=== PATIENT | male | born 1980 | race Caucasian/White ===

== ENCOUNTER 2022-06-23 09:30 | Emergency (ER) | payer MEDICAID, OTHER ==
[~2022-06-23] VITALS: Ht 182.9 cm; Wt 65.0 kg
[2022-06-23] MEDS ORDERED: LIDOCAINE 1% HCL (LOCAL ANESTH.) INJ 20ML MDV IJ ONE (10:00)
[2022-06-23 10:09] VITALS: BP 137/98
[2022-06-23] MEDS ORDERED: CEPH-510 PO (10:32)
[2022-06-23] MEDS ORDERED: NAPR500T31 PO (10:32)
== END 2022-06-23 10:39 | disposition home or self-care (01) ==
LOC: ER 09:30 → EDUNIT# 09:30 → EDBD 09:30 → ER 10:39
DX: S01.81XA Laceration without foreign body of other part of head, initial encounter (principal); S81.811A Laceration without foreign body, right lower leg, initial encounter; F17.210 Nicotine dependence, cigarettes, uncomplicated; W26.8XXA Contact with other sharp object(s), not elsewhere classified, initial encounter; Y93.89 Activity, other specified; Y92.89 Other specified places as the place of occurrence of the external cause; Y99.8 Other external cause status
CPT/HCPCS: 12002; 12015; 99283; J2001

== ENCOUNTER 2022-07-20 13:56 | Inpatient (IN) | payer MEDICAID ==
[~2022-07-20] VITALS: Ht 180.3 cm; Wt 79.8 kg
[~2022-07-20 13:56] MED LIST: CEPH-510 PO; NAPR500T31 PO
[2022-07-20] MEDS ORDERED: CLINDAMYCIN 600MG IV 50 ML IV ONE (14:30)
[2022-07-20] MEDS ORDERED: SODIUM CHLORIDE 0.9% 1,000 ML IV ONE ×2 (14:30)
[2022-07-20] MEDS ORDERED: cefTRIAXone 1GM/50ML D5W 50 ML IV ONE (14:30)
[2022-07-20 14:42] LABS: Basophils # (auto) 0.1 10 ^3/uL (0-0.2); Eosinophils # (auto) 0.2 10 ^3/uL (0-0.8); Eosinophils % (auto) 1.6 % (0.0-7.0); Hematocrit 37.8 % (41.0-53.0); Hemoglobin 12.4 g/dL (13.5-17.5); Lymphocytes # (auto) 2.8 10 ^3/uL (0.4-5.4); Mean Corpuscular Hemoglobin 27.8 pg (28.0-32.0); Mean Corpuscular Hgb Conc. 32.7 g/dL (32.0-36.0); Monocytes # (auto) 1.3 10 ^3/uL (0-1.3); Monocytes % (auto) 10.5 % (0.0-12.0); Neutrophils # (auto) 8.2 10 ^3/uL (1.6-8.6); Neutrophils % (auto) 64.9 % (37.0-80.0); Nucleated Red Blood Cells % 0.1 %; Red Blood Cells 4.44 10^6/uL (4.5-5.90); Red Cell Distribution Width 13.3 % (11.8-14.3); White Blood Cell 12.6 10^3/uL (4.4-10.8)
[2022-07-20 14:58] LABS: Albumin 2.7 g/dL (3.4-5.0); BUN/Creatinine Ratio 11.2; Calcium 8.8 mg/dL (8.5-10.1); Potassium 3.5 mmol/L (3.5-5.1)
[2022-07-20 15:00] LABS: INR 0.93 (0.9-1.15); Partial Thromboplastin Time 27.1 sec (24.6-33.4)
[2022-07-20 15:02] LABS: Bilirubin, Total 0.2 mg/dL (0.2-1.0); Total Protein 6.2 g/dL (6.4-8.2)
[2022-07-20] MEDS ORDERED: KETOROLAC TROMETH 30 MG/ML 1ML VIAL IV ONE (16:00)
[2022-07-20] MEDS: SODIUM CHLORIDE 0.9% 1,000 ML IV SCH (16:14)
[2022-07-20 16:34] LABS: Urine Bacteria NONE SEEN /hpf (None Seen); Urine Blood Negative /uL (Negative); Urine Specific Gravity 1.003 (1.001-1.035); Urine WBC <1 /hpf (0 - 3)
[2022-07-20] MEDS: KETOROLAC TROMETH 30 MG/ML 1ML VIAL IV PRN (20:14)
[2022-07-20] MEDS: CLINDAMYCIN 600MG IV 50 ML IV SCH (21:52)
[2022-07-20] MEDS: ASCORBIC ACID 500 MG TAB PO SCH (21:53)
[2022-07-20 21:58] VITALS: BP 131/71
[2022-07-20 22:00] VITALS: BP 131/71
[2022-07-21 05:00] VITALS: BP 111/58
[2022-07-21] MEDS: CLINDAMYCIN 600MG IV 50 ML IV SCH ×3 (05:27→21:22)
[2022-07-21] MEDS: SODIUM CHLORIDE 0.9% 1,000 ML IV SCH ×2 (05:30→20:53)
[2022-07-21 06:17] LABS: Basophils # (auto) 0.1 10 ^3/uL (0-0.2); Basophils % (auto) 0.7 % (0.0-2.0); Eosinophils # (auto) 0.3 10 ^3/uL (0-0.8); Eosinophils % (auto) 2.2 % (0.0-7.0); Hematocrit 38.6 % (41.0-53.0); Hemoglobin 12.7 g/dL (13.5-17.5); Lymphocytes % (auto) 14.4 % (10.0-50.0); Mean Corpuscular Hgb Conc. 32.8 g/dL (32.0-36.0); Mean Corpuscular Volume 85.3 fL (80.0-100.0); Monocytes % (auto) 6.7 % (0.0-12.0); Neutrophils # (auto) 10.7 10 ^3/uL (1.6-8.6); Nucleated Red Blood Cells % 0.1 %; Red Blood Cells 4.53 10^6/uL (4.5-5.90); Red Cell Distribution Width 13.2 % (11.8-14.3); White Blood Cell 14.2 10^3/uL (4.4-10.8)
[2022-07-21 06:34] LABS: Albumin 2.6 g/dL (3.4-5.0); BUN/Creatinine Ratio 13.3; Calcium 8.6 mg/dL (8.5-10.1); Potassium 4.6 mmol/L (3.5-5.1)
[2022-07-21 06:38] LABS: Bilirubin, Total 0.3 mg/dL (0.2-1.0); Total Protein 6.3 g/dL (6.4-8.2)
[2022-07-21 09:00] VITALS: BP 112/68
[2022-07-21] MEDS ORDERED: cefTRIAXone 1GM/50ML D5W 50 ML IV SCH (09:00)
[2022-07-21] MEDS: ASCORBIC ACID 500 MG TAB PO SCH ×2 (09:41→21:22)
[2022-07-21] MEDS: ZINC SULFATE 220mg CAP or TAB PO SCH (09:41)
[2022-07-21] MEDS: ENOXAPARIN SOD 40 MG/0.4 ML SYRINGE SC SCH (09:41)
[2022-07-21] MEDS: MULTIPLE VITAMIN TAB PO SCH (09:41)
[2022-07-21 13:00] VITALS: BP 107/59
[2022-07-21 22:00] VITALS: BP 112/67
[2022-07-21] MEDS ORDERED: VANCOMYCIN PER PHARMACY 0 MG IV SCH (22:30)
[2022-07-21] MEDS ORDERED: VANCOMYCIN 1GM/250ML 250 ML IV ONE (23:00)
[2022-07-22 05:00] VITALS: BP 118/79
[2022-07-22 09:00] VITALS: BP 112/63
[2022-07-22] MEDS: ENOXAPARIN SOD 40 MG/0.4 ML SYRINGE SC SCH ×2 (10:00→10:43)
[2022-07-22] MEDS: SODIUM CHLORIDE 0.9% 1,000 ML IV SCH (10:39)
[2022-07-22] MEDS: ZINC SULFATE 220mg CAP or TAB PO SCH (10:43)
[2022-07-22] MEDS: ASCORBIC ACID 500 MG TAB PO SCH ×2 (10:43→21:42)
[2022-07-22] MEDS: MULTIPLE VITAMIN TAB PO SCH (10:43)
[2022-07-22] MEDS: VANCOMYCIN 1GM/250ML 250 ML IV SCH ×2 (11:55→20:11)
[2022-07-22 13:00] VITALS: BP 107/55
[2022-07-22 16:36] VITALS: BP 96/54
[2022-07-22] MEDS: KETOROLAC TROMETH 30 MG/ML 1ML VIAL IV PRN (21:11)
[2022-07-22 22:00] VITALS: BP 120/72
[2022-07-23] MEDS: SODIUM CHLORIDE 0.9% 1,000 ML IV SCH ×2 (00:42→15:00)
[2022-07-23 03:13] LABS: Albumin 2.3 g/dL (3.4-5.0); BUN/Creatinine Ratio 12.6; Calcium 8.6 mg/dL (8.5-10.1); Phosphorus 4.2 mg/dL (2.5-4.90); Potassium 4.1 mmol/L (3.5-5.1)
[2022-07-23] MEDS: VANCOMYCIN 1GM/250ML 250 ML IV SCH ×3 (04:17→20:02)
[2022-07-23 05:00] VITALS: BP 112/78
[2022-07-23 09:00] VITALS: BP 136/74
[2022-07-23] MEDS: ENOXAPARIN SOD 40 MG/0.4 ML SYRINGE SC SCH ×2 (10:00→11:07)
[2022-07-23] MEDS: ASCORBIC ACID 500 MG TAB PO SCH ×2 (11:07→22:19)
[2022-07-23] MEDS: ZINC SULFATE 220mg CAP or TAB PO SCH (11:07)
[2022-07-23] MEDS: MULTIPLE VITAMIN TAB PO SCH (11:07)
[2022-07-23 13:00] VITALS: BP 117/69
[2022-07-23] MEDS: ACETAMINOPHEN 325 MG TAB PO PRN (13:59)
[2022-07-23 16:51] VITALS: BP 115/63
[2022-07-23] MEDS: KETOROLAC TROMETH 30 MG/ML 1ML VIAL IV PRN ×2 (18:21→18:54)
[2022-07-23 23:00] VITALS: BP 127/77
[2022-07-24] MEDS: VANCOMYCIN 1GM/250ML 250 ML IV SCH ×3 (04:42→21:49)
[2022-07-24] MEDS: SODIUM CHLORIDE 0.9% 1,000 ML IV SCH ×2 (05:18→20:15)
[2022-07-24 05:45] VITALS: BP 119/63
[2022-07-24 09:00] VITALS: BP 117/73
[2022-07-24] MEDS: MULTIPLE VITAMIN TAB PO SCH (09:17)
[2022-07-24] MEDS: ENOXAPARIN SOD 40 MG/0.4 ML SYRINGE SC SCH (09:17)
[2022-07-24] MEDS: ZINC SULFATE 220mg CAP or TAB PO SCH (09:17)
[2022-07-24] MEDS: ASCORBIC ACID 500 MG TAB PO SCH ×2 (09:17→22:02)
[2022-07-24] MEDS: KETOROLAC TROMETH 30 MG/ML 1ML VIAL IV PRN ×2 (09:59→20:06)
[2022-07-24 13:00] VITALS: BP 110/60
[2022-07-24] MEDS ORDERED: PROPOFOL 10 MG/ML 20 ML IV ONE (14:26)
[2022-07-24] MEDS ORDERED: GLYCOPYRROLATE 0.2 MG/ML 1ML VIAL ONE (14:27)
[2022-07-24] MEDS ORDERED: DexAMETHasone SOD PHOS 10MG/1ML VIAL INJ ONE (14:27)
[2022-07-24] MEDS ORDERED: ONDANSETRON HCL 4 MG/2 ML VIAL ONE (14:27)
[2022-07-24] MEDS ORDERED: KETOROLAC TROMETH 30 MG/ML 1ML VIAL ONE (14:27)
[2022-07-24] MEDS ORDERED: KETAMINE 50mg/ML 10ml Vial (500mg/10ml) IV ONE (14:30)
[2022-07-24] MEDS ORDERED: BUPIVACAINE 0.25% INJ 50ML VIAL ONE (14:41)
[2022-07-24] MEDS ORDERED: LIDOCAINE 1%HCL (LOCAL ANESTH) 10 ML MDV ONE (14:41)
[2022-07-24 16:15] VITALS: BP 117/74
[2022-07-24 22:00] VITALS: BP 107/60
[2022-07-24] MEDS: DAKINS QUARTER STR 0.125% (NaHypochlorite) 473 ML TOPICAL SOL TOP SCH (22:35)
[2022-07-24] MEDS ORDERED: SULF400T11 PO (23:48)
[2022-07-24] MEDS ORDERED: BACDST PO (23:49)
[2022-07-24] MEDS ORDERED: AMOX-277 PO (23:51)
[2022-07-25] MEDS: ACETAMINOPHEN 325 MG TAB PO PRN (00:51)
[2022-07-25] MEDS: VANCOMYCIN 1GM/250ML 250 ML IV SCH ×2 (04:55→13:16)
[2022-07-25 05:00] VITALS: BP 107/62
[2022-07-25] MEDS: KETOROLAC TROMETH 30 MG/ML 1ML VIAL IV PRN ×2 (05:06→16:03)
[2022-07-25 08:00] VITALS: BP 104/59
[2022-07-25 09:00] VITALS: BP 104/59
[2022-07-25] MEDS: MULTIPLE VITAMIN TAB PO SCH (09:37)
[2022-07-25] MEDS: ENOXAPARIN SOD 40 MG/0.4 ML SYRINGE SC SCH (09:37)
[2022-07-25] MEDS: ZINC SULFATE 220mg CAP or TAB PO SCH (09:37)
[2022-07-25] MEDS: ASCORBIC ACID 500 MG TAB PO SCH (09:37)
[2022-07-25] MEDS: SODIUM CHLORIDE 0.9% 1,000 ML IV SCH (09:54)
[2022-07-25 13:00] VITALS: BP 109/56
[2022-07-25] MEDS: DAKINS QUARTER STR 0.125% (NaHypochlorite) 473 ML TOPICAL SOL TOP SCH (16:03)
[2022-07-25 16:11] VITALS: BP 109/56
[2022-07-25 17:00] VITALS: BP 114/55
== END 2022-07-25 17:52 | disposition home health service (06) | DRG 383 ==
LOC: ER 13:56 → OVERFLOW 15:31 → WEST WING 21:33
PROVIDERS: ADMIT Nurse Practitioner Family; ATTEND Internal Medicine
PROC: 0JBN0ZZ Excision of Right Lower Leg Subcutaneous Tissue and Fascia, Open Approach (ICD-10-PCS; principal; 2022-07-24 15:09)
DX: L03.115 Cellulitis of right lower limb (principal); E88.09 Other disorders of plasma-protein metabolism, not elsewhere classified; L97.919 Non-pressure chronic ulcer of unspecified part of right lower leg with unspecified severity; S81.811A Laceration without foreign body, right lower leg, initial encounter; D64.9 Anemia, unspecified; S01.81XA Laceration without foreign body of other part of head, initial encounter; B95.62 Methicillin resistant Staphylococcus aureus infection as the cause of diseases classified elsewhere; D72.829 Elevated white blood cell count, unspecified; F15.10 Other stimulant abuse, uncomplicated; J45.909 Unspecified asthma, uncomplicated; Z20.822 Contact with and (suspected) exposure to COVID-19; W18.39XA Other fall on same level, initial encounter; Y93.89 Activity, other specified; Y92.89 Other specified places as the place of occurrence of the external cause; Y99.8 Other external cause status; Z71.6 Tobacco abuse counseling
CPT/HCPCS: 36415; 71045; 73700; 80053; 80069; 80202; 81001; 82565; 85025; 85379; 85610; 85730; 87040; 87070; 87075; 87077; 87186; 87205; 87426; 96365; 96368; 96375; 96376; G0378; J0696; J1100; J1885; J2001; J2405; J2704; J3490

== ENCOUNTER 2022-09-07 19:20 | Inpatient (IN) | payer MEDICAID ==
[~2022-09-07] VITALS: Ht 180.3 cm; Wt 78.0 kg
[~2022-09-07 19:20] MED LIST changes: +AMOX-277 PO; +BACDST PO; -CEPH-510 PO; -NAPR500T31 PO
[2022-09-07] MEDS ORDERED: HYDROcodone-ACET 10/325MG TAB PO ONE (20:00)
[2022-09-07 20:35] LABS: Basophils # (auto) 0.1 10 ^3/uL (0-0.2); Basophils % (auto) 0.5 % (0.0-2.0); Eosinophils # (auto) 0.2 10 ^3/uL (0-0.8); Hematocrit 39.4 % (41.0-53.0); Hemoglobin 13.4 g/dL (13.5-17.5); Lymphocytes # (auto) 1.8 10 ^3/uL (0.4-5.4); Lymphocytes % (auto) 16.3 % (10.0-50.0); Mean Corpuscular Hgb Conc. 33.9 g/dL (32.0-36.0); Mean Corpuscular Volume 85.4 fL (80.0-100.0); Monocytes # (auto) 0.8 10 ^3/uL (0-1.3); Monocytes % (auto) 7.6 % (0.0-12.0); Neutrophils % (auto) 73.6 % (37.0-80.0); Nucleated Red Blood Cells % 0.2 %; Red Blood Cells 4.62 10^6/uL (4.5-5.90); White Blood Cell 10.9 10^3/uL (4.4-10.8)
[2022-09-07 20:54] LABS: Albumin 3.7 g/dL (3.4-5.0)
[2022-09-07 21:03] LABS: Bilirubin, Total 0.3 mg/dL (0.2-1.0); CRP High Sensitivity 4.05 mg/dL (< 0.3); Total Protein 7.3 g/dL (6.4-8.2)
[2022-09-08] MEDS ORDERED: VANCOMYCIN 1GM/250ML 250 ML IV SCH ×2 (00:50→01:50)
[2022-09-08] MEDS ORDERED: ACETAMINOPHEN 325 MG TAB PO PRN (01:45)
[2022-09-08] MEDS ORDERED: MORPHINE SULFATE INJ 2 MG/ml SYRG IV PRN ×2 (01:45)
[2022-09-08] MEDS ORDERED: VANCOMYCIN PER PHARMACY 0 MG IV SCH (01:45)
[2022-09-08] MEDS ORDERED: ONDANSETRON HCL 4 MG/2 ML VIAL IV PRN (01:45)
[2022-09-08] MEDS ORDERED: DOCUSATE SOD 100 MG CAP PO PRN (01:45)
[2022-09-08] MEDS ORDERED: NITROGLYCERIN 0.4 MG SL TAB SL PRN (01:45)
[2022-09-08] MEDS: SODIUM CHLOR 0.9% PF (SALINE LOCK) 10ML VIAL/SYR IV SCH ×3 (07:17→23:10)
[2022-09-08] MEDS: HYDROcodone-ACET 5/325MG TAB PO PRN (08:49)
[2022-09-08] MEDS: ZINC SULFATE 220mg CAP or TAB PO SCH (10:18)
[2022-09-08] MEDS: ASCORBIC ACID 500 MG TAB PO SCH ×2 (10:18→23:10)
[2022-09-08] MEDS: MULTIPLE VITAMIN TAB PO SCH (10:18)
[2022-09-08] MEDS: ENOXAPARIN SOD 40 MG/0.4 ML SYRINGE SC SCH (10:19)
[2022-09-08] MEDS: VANCOMYCIN 1GM/250ML 250 ML IV SCH (23:10)
[2022-09-09 04:45] LABS: Basophils # (auto) 0 10 ^3/uL (0-0.2); Basophils % (auto) 0.4 % (0.0-2.0); Eosinophils # (auto) 0.3 10 ^3/uL (0-0.8); Hematocrit 39.8 % (41.0-53.0); Lymphocytes # (auto) 1.7 10 ^3/uL (0.4-5.4); Lymphocytes % (auto) 21.9 % (10.0-50.0); Mean Corpuscular Hemoglobin 28.1 pg (28.0-32.0); Mean Corpuscular Hgb Conc. 32.7 g/dL (32.0-36.0); Monocytes % (auto) 12.3 % (0.0-12.0); Neutrophils # (auto) 4.8 10 ^3/uL (1.6-8.6); Neutrophils % (auto) 61.4 % (37.0-80.0); Red Blood Cells 4.63 10^6/uL (4.5-5.90); Red Cell Distribution Width 15.1 % (11.8-14.3); White Blood Cell 7.8 10^3/uL (4.4-10.8)
[2022-09-09 05:01] LABS: Albumin 2.9 g/dL (3.4-5.0); Calcium 8.6 mg/dL (8.5-10.1); Potassium 4.1 mmol/L (3.5-5.1)
[2022-09-09 05:04] LABS: BUN/Creatinine Ratio 17.5
[2022-09-09 05:07] LABS: Bilirubin, Total 0.2 mg/dL (0.2-1.0); Total Protein 6.7 g/dL (6.4-8.2)
[2022-09-09] MEDS: SODIUM CHLOR 0.9% PF (SALINE LOCK) 10ML VIAL/SYR IV SCH ×3 (06:04→22:12)
[2022-09-09] MEDS: ENOXAPARIN SOD 40 MG/0.4 ML SYRINGE SC SCH (10:43)
[2022-09-09] MEDS: MULTIPLE VITAMIN TAB PO SCH (10:43)
[2022-09-09] MEDS: VANCOMYCIN 1GM/250ML 250 ML IV SCH ×3 (10:43→22:13)
[2022-09-09] MEDS: ASCORBIC ACID 500 MG TAB PO SCH ×2 (10:43→22:12)
[2022-09-09] MEDS: ZINC SULFATE 220mg CAP or TAB PO SCH (10:43)
[2022-09-09 12:00] VITALS: BP 111/77
[2022-09-09 16:00] VITALS: BP 114/69
[2022-09-09 22:00] VITALS: BP 129/85
[2022-09-09] MEDS: HYDROcodone-ACET 5/325MG TAB PO PRN (22:58)
[2022-09-09 23:14] LABS: Urine Bacteria FEW /hpf (None Seen); Urine Blood Negative /uL (Negative); Urine Specific Gravity 1.023 (1.001-1.035); Urine Sperm PRESENT /hpf (None Seen); Urine WBC 5 /hpf (0 - 3)
[2022-09-09 23:23] LABS: Alcohol, Urine < 3.0 mg/dL (0-10); Amphetamine Screen, Urine POSITIVE (NEGATIVE); Barbiturate Scree,Urine NEGATIVE (NEGATIVE); Cannabinoid Screen, Urine POSITIVE (NEGATIVE); Cocaine Screen, Urine NEGATIVE (NEGATIVE); Opiate Scree,Urine NEGATIVE (NEGATIVE)
[2022-09-10 00:09] LABS: Phencyclidine Screen, Urine NEGATIVE (NEGATIVE)
[2022-09-10 00:10] LABS: Benzodiazephine Screen, Urine NEGATIVE (NEGATIVE)
[2022-09-10 05:00] VITALS: BP 117/63
[2022-09-10] MEDS: SODIUM CHLOR 0.9% PF (SALINE LOCK) 10ML VIAL/SYR IV SCH ×2 (06:00→14:00)
[2022-09-10] MEDS: VANCOMYCIN 1GM/250ML 250 ML IV SCH (07:30)
[2022-09-10 09:00] VITALS: BP 121/66
[2022-09-10] MEDS: ZINC SULFATE 220mg CAP or TAB PO SCH (10:02)
[2022-09-10] MEDS: ASCORBIC ACID 500 MG TAB PO SCH (10:02)
[2022-09-10] MEDS: MULTIPLE VITAMIN TAB PO SCH (10:02)
[2022-09-10] MEDS: ENOXAPARIN SOD 40 MG/0.4 ML SYRINGE SC SCH (10:03)
[2022-09-10] MEDS ORDERED: BACDST PO (11:25)
[2022-09-10] MEDS ORDERED: DOXY-286 PO (11:25)
[2022-09-10] MEDS ORDERED: [UNRECOGNIZED DRUG - SUPPLY] XX (11:30)
[2022-09-10] MEDS ORDERED: [UNRECOGNIZED DRUG - CODE] EX (11:30)
[2022-09-10] MEDS ORDERED: CHLO4LIQ EX (11:30)
== END 2022-09-10 14:37 | disposition home or self-care (01) | DRG 383 ==
LOC: ER 19:20 → OVERFLOW 09-08 01:42 → CENTRAL 09-09 11:34
PROVIDERS: ADMIT Nurse Practitioner Family; ATTEND Internal Medicine
DX: L03.115 Cellulitis of right lower limb (principal); S81.811A Laceration without foreign body, right lower leg, initial encounter; W18.39XA Other fall on same level, initial encounter; F17.210 Nicotine dependence, cigarettes, uncomplicated; Z20.822 Contact with and (suspected) exposure to COVID-19; Z88.8 Allergy status to other drugs, medicaments and biological substances; Z91.018 Allergy to other foods; Y93.89 Activity, other specified; Y92.89 Other specified places as the place of occurrence of the external cause; Y99.8 Other external cause status
CPT/HCPCS: 36415; 80053; 80202; 80307; 81001; 83605; 83690; 85025; 86141; 87040; 87205; 87426; 93971; 96365; 96366; G0378